=== PATIENT | female | born 1955 | race Caucasian/White ===

== ENCOUNTER 2024-08-28 15:46 | Emergency (ER) | payer OTHER, MEDICAID ==
[~2024-08-28] VITALS: Ht 152.4 cm; Wt 64.9 kg
[2024-08-28 16:02] VITALS: BP_SYST 161; PULSE 80; RESP 16; TEMP 97.8; O2SAT 96
[2024-08-28] MEDS: SULFAMETHOXAZOLE/TRIMETHOPR DS 1 TABLET PO ONE (17:22)
[2024-08-28] MEDS ORDERED: SULF1TAB48 PO (17:33)
[2024-08-28 17:39] VITALS: BP_SYST 161; PULSE 80; RESP 16; TEMP 97.8; O2SAT 96
== END 2024-08-28 17:40 | disposition home or self-care (01) ==
LOC: SED 15:46
DX: L73.9 Follicular disorder, unspecified (principal); R22.0 Localized swelling, mass and lump, head; Z79.2 Long term (current) use of antibiotics; W57.XXXA Bitten or stung by nonvenomous insect and other nonvenomous arthropods, initial encounter; Y93.89 Activity, other specified; Y92.89 Other specified places as the place of occurrence of the external cause; Y99.8 Other external cause status
CPT/HCPCS: 99283